=== PATIENT | male | born 1960 | race Caucasian/White ===

== ENCOUNTER → 2017-06-11 | Outpatient (CLI) | payer MEDICARE ==
[~2017-06-11] MED LIST: ANUSOL-HC SUPP25 MG PR; DOCUSATE SODIU100 MG PO
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
== END | disposition home or self-care (01) ==
LOC: SMRI 12:49
DX: M54.9 Dorsalgia, unspecified (principal); M48.54XD Collapsed vertebra, not elsewhere classified, thoracic region, subsequent encounter for fracture with routine healing; M89.9 Disorder of bone, unspecified; R60.0 Localized edema; M25.78 Osteophyte, vertebrae; M47.894 Other spondylosis, thoracic region; M51.24 Other intervertebral disc displacement, thoracic region
CPT/HCPCS: 72146